=== PATIENT | male | born 1945 | race Caucasian/White ===

== ENCOUNTER 2016-03-30 10:45 | Emergency (ER) | payer BC ==
[2016-03-30 11:13] VITALS: BP 148/77
[2016-03-30] MEDS ORDERED: Albuterol/Ipratropium NEB.SOL* Albuterol 2.5 MG/Ipratropium 0.5 MG 3 ML INH ONE (11:15)
--- NOTE | 2016-03-30 11:41 | RAD ---
INDICATION: Cough, wheezes and shortness of breath. COMPARISON: Comparison is made with a prior chest x-ray study from July 21, 2014. TECHNIQUE: Dual-energy PA and lateral views of the chest were obtained. FINDINGS: The heart is within normal limits in size. Mediastinal and hilar contours appear within normal limits. The lungs are hyperinflated with flattening of the diaphragms. The lungs are clear. No pleural effusion is seen. IMPRESSION: FINDINGS SUGGESTIVE OF COPD, NO EVIDENCE FOR ACUTE FINDING.
--- NOTE | 2016-03-30 11:45 | UC ---
Respiratory Complaint HPI - HPI Summary HPI Summary: Exacerbation of Asthma non-stop from October has seen PCP several times, a course of Doxycycline, and Biaxin, steroids, and spiriva have been added pt feels he is not getting better at all - History of Current Complaint Chief Complaint: UCRespiratory Stated Complaint: ASHTMA ATTACK COMPLAINT Time Seen by Provider: 03/30/16 10:56 Hx Obtained From: Patient Onset/Duration: Gradual Onset, Lasting Weeks, Still Present, Worse Since - past 5 days Timing: Constant Severity Initially: Mild Severity Currently: Moderate Character: Cough: Productive Aggravating Factors: Nothing Alleviating Factors: Nothing Associated Signs And Symptoms: Positive: Dyspnea, Pleuritic Chest Pain, Wheezing , URI. Negative: Fever, Chills, Calf Pain, Calf Swelling - Allergies/Home Medications Allergies/Adverse Reactions: Allergies Allergy/AdvReac Type Severity Reaction Status Date / Time Penicillins Allergy Unknown Verified 03/30/16 10:55 Reaction Details Home Medications: Home Medications Albuterol HFA INHALER* [Ventolin HFA Inhaler*] 1 - 2 puff INH Q4H PRN 03/30/16 [ History Confirmed 03/30/16] DOXYcycline CAP(*) [DOXYcycline 100MG CAP(*)] 100 mg PO BID 03/30/16 [History Confirmed 03/30/16] Fluticasone-Salmeterol 500-50* [Advair Diskus 500-50*] 2 puff INH DAILY [History Confirmed 03/30/16] Lisinopril TAB* [Prinivil TAB*] 10 mg PO DAILY 03/30/16 [History Confirmed 03/30] Tamsulosin CAP* [Flomax CAP*] 0.4 mg PO DAILY 03/30/16 [History Confirmed ] Tiotropium CAP.INH* [Spiriva CAP.INH*] 1 cap.inh INH DAILY 03/30/16 [History Confirmed 03/30/16] predniSONE TAB* [Deltasone TAB*] 5 mg PO DAILY 03/30/16 [History Confirmed 03/30] PMH/Surg Hx/FS Hx/Imm Hx Previously Healthy: No Cardiovascular History Of: Reports: Hypertension Respiratory History Of: Reports: Asthma - Surgical History Surgical History: None - Family History Known Family History: Positive: Hypertension - Social History Occupation: Retired Lives: With Family Alcohol Use: Weekly Alcohol Amount: 4-5 times weekly Substance Use Type: None Smoking Status (MU): Never Smoked Tobacco - Immunization History Most Recent Influenza Vaccination: not this season Review of Systems Constitutional: Negative Skin: Negative Eyes: Negative ENT: Negative Respiratory: Cough - Wheeze Cardiovascular: Negative Gastrointestinal: Negative Genitourinary: Negative Motor: Negative Neurovascular: Negative Musculoskeletal: Negative Neurological: Negative Psychological: Negative All Other Systems Reviewed And Are Negative: Yes Physical Exam Triage Information Reviewed: Yes Appearance: Well-Appearing, No Pain Distress, Well-Nourished Vital Signs: Initial Vital Signs Temp 97.7 F 03/30/16 10:57 Pulse 74 03/30/16 10:57 Resp 20 03/30/16 10:57 BP 148/77 03/30/16 10:57 Pulse Ox 97 03/30/16 10:57 Vital Signs Reviewed: Yes Eye Exam: Normal Eyes: Positive: Conjunctiva Clear ENT Exam: Normal ENT: Positive: Normal ENT inspection, Hearing grossly normal, Pharynx normal, TMs normal. Negative: Nasal congestion, Nasal drainage, Tonsillar swelling, Tonsillar exudate, Trismus, Muffled/hoarse voice Neck exam: Normal Neck: Positive: Supple, Nontender, No Lymphadenopathy Respiratory Exam: Normal Respiratory: Positive: Chest non-tender, No respiratory distress, No accessory muscle use, Wheezing Cardiovascular Exam: Normal Cardiovascular: Positive: RRR, No Murmur, Pulses Normal, Brisk Capillary Refill Neurological Exam: Normal Neurological: Positive: Alert, Muscle Tone Normal Psychological Exam: Normal Psychological: Positive: Normal Response To Family Skin Exam: Normal UC Diagnostic Evaluation - Laboratory O2 Sat by Pulse Oximetry: 97 - Radiology Xray Interpretation: No Acute Changes Radiology Interpretation Completed By: Radiologist Re-Evaluation - Re-Evaluation First Eval Change: Improved - After Duo neb Respiratory Course/Dx - Course Course Of Treatment: Increase albuterol use to 4 times a day, follow with circuit judge or Asthma Specialist in the next week, re-check with Dr. Chahal, continue other meds as prescribed - Differential Dx/Diagnosis Differential Diagnosis/HQI/PQRI: Asthma, Exacerbation Of COPD, Influenza, Laryngitis, Lower Resp Infection Provider Diagnoses: Copd, Exacerbation of Asthma Discharge - Discharge Plan Condition: Stable Disposition: HOME Patient Education Materials: Asthma (ED), Moderate and Severe Persistent Asthma (ED), Allergies (ED) Referrals: Jimmy Anton MD [Medical Doctor] - 1 Week Sohail Chahal MD [Primary Care Provider] - Juana Izquierdo MD [Medical Doctor] - 1 Week
== END 2016-03-30 12:05 | disposition home or self-care (01) ==
LOC: UCCORT 10:45
DX: J45.901 Unspecified asthma with (acute) exacerbation (principal); J44.9 Chronic obstructive pulmonary disease, unspecified; I10 Essential (primary) hypertension; Z88.0 Allergy status to penicillin
CPT/HCPCS: 71020; 99202; A9270-GY; G0463

== ENCOUNTER 2016-08-14 15:00 | Emergency (ER) | payer BC ==
[2016-08-14 16:02] VITALS: BP 125/81
--- NOTE | 2016-08-14 16:24 | UC ---
Hand/Wrist HPI - HPI Summary HPI Summary: Patient was playing volleyball and jammed his right pinky finger. he cannot straighten the DIP joint, ecchymosis under the right pinky nail - History Of Current Complaint Chief Complaint: UCUpperExtremity Stated Complaint: RIGHT PINKY INJURY Time Seen by Provider: 08/14/16 16:17 Hx Obtained From: Patient ?: No Mechanism Of Injury: trauma to end of nail Onset/Duration: Sudden Onset Severity Initially: Mild Severity Currently: Mild Character Of Pain: Dull, Stiffness Aggravating Factor(s): Movement Alleviating: Nothing Associated Signs And Symptoms: Positive: Swelling, Bruising - Allergies/Home Medications Allergies/Adverse Reactions: Allergies Allergy/AdvReac Type Severity Reaction Status Date / Time Penicillins Allergy Unknown Verified 08/14/16 16:02 Reaction Details PMH/Surg Hx/FS Hx/Imm Hx Previously Healthy: Yes - Surgical History Surgical History: None - Family History Known Family History: Positive: Hypertension - Social History Alcohol Use: Weekly Alcohol Amount: 4-5 times weekly Substance Use Type: None Smoking Status (MU): Never Smoked Tobacco - Immunization History Most Recent Influenza Vaccination: not this season Review of Systems Constitutional: Negative Skin: Bruising Eyes: Negative ENT: Negative Respiratory: Negative Cardiovascular: Negative Gastrointestinal: Negative Genitourinary: Negative Motor: Negative Musculoskeletal: Arthralgia, Decreased ROM, Edema Neurological: Negative Psychological: Negative All Other Systems Reviewed And Are Negative: Yes Physical Exam Triage Information Reviewed: Yes Appearance: Well-Appearing, Well-Nourished, Pain Distress Vital Signs: Initial Vital Signs Temp 97.8 F 08/14/16 15:55 Pulse 67 08/14/16 15:55 Resp 16 08/14/16 15:55 BP 125/81 08/14/16 15:55 Pulse Ox 97 08/14/16 15:55 Vital Signs Reviewed: Yes Eye Exam: Normal ENT Exam: Normal Dental Exam: Normal Neck exam: Normal Respiratory Exam: Normal Cardiovascular Exam: Normal Abdominal Exam: Normal Bowel Sounds: Positive: Present Musculoskeletal: Positive: Strength Limited @ - 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 reduction of joint performed and splint applied. - Differential Dx/Diagnosis Differential Diagnosis/HQI/PQRI: Contusion, Dislocation, Fracture, Sprain, Strain, Subungual Hematoma, Tendonitis Provider Diagnoses: OBLIQUE INTRA-ARTICULAR SLIGHTLY DISPLACED FRACTURE THROUGH THE DORSAL BASE. subungal hematoma Discharge - Discharge Plan Condition: Stable Disposition: HOME Patient Education Materials: Finger Fracture (ED) Additional Instructions: 1. Soak the hand twice a day for the next few days. 2. Wear the splint daily for the next 2 weeks. 3. Follow up with Dr luque in a week or two to make sure it is healing well.
--- NOTE | 2016-08-14 16:39 | RAD ---
INDICATION: Right fifth finger injury. TECHNIQUE: 3 views of the right fifth finger were obtained. FINDINGS: There is an oblique fracture present through the dorsal base of the distal phalanx. This gives rise to a 3 x 2 mm fracture fragment which is distracted. The finger is flexed at the distal interphalangeal joint. IMPRESSION: OBLIQUE INTRA-ARTICULAR SLIGHTLY DISPLACED FRACTURE THROUGH THE DORSAL BASE OF THE DISTAL PHALANX.
== END 2016-08-14 17:06 | disposition home or self-care (01) ==
LOC: UCCORT 15:00
DX: S62.636A Displaced fracture of distal phalanx of right little finger, initial encounter for closed fracture (principal); W23.0XXA Caught, crushed, jammed, or pinched between moving objects, initial encounter; Y93.68 Activity, volleyball (beach) (court); Y92.9 Unspecified place or not applicable; Z88.0 Allergy status to penicillin
CPT/HCPCS: 73140; 99212; G0463

== ENCOUNTER 2018-06-06 15:58 | Emergency (ER) | payer BC ==
[2018-06-06 17:01] VITALS: BP 143/74
--- NOTE | 2018-06-06 17:24 | UC ---
Respiratory Complaint HPI - HPI Summary HPI Summary: Pt has asthma and has had cough, nasal congestion, and occasional wheezing x5 nights. took some advil which helped body aches. did not get flu shot this year. but feels it is not the flu. using his regular inhalers which help but feels symptoms have gone on long enough. just drove back from [place]. - History of Current Complaint Chief Complaint: UCRespiratory Stated Complaint: COUGH,CONGESTION Time Seen by Provider: 06/06/18 17:23 Pain Intensity: 0 - Allergies/Home Medications Allergies/Adverse Reactions: Allergies Allergy/AdvReac Type Severity Reaction Status Date / Time Penicillins Allergy Unknown Unknown Verified 06/06/18 16:54 Reaction Details BRAZIL NUTS,ALMONS Allergy Severe Anaphylatic Uncoded 06/06/18 16:54 Shock Home Medications: Home Medications Calcium Carb,Gluc/Mag Ox,Gluc [Calcium Magnesium Caplet] 2 tab PO DAILY [History Confirmed 06/06/18] Food Enzyme Digestive Aid 1 tab PO BID 06/06/18 [History Confirmed 06/06/18] Histablock 2 tab PO BID 06/06/18 [History Confirmed 06/06/18] Hydrangea 2 tab PO BID 06/06/18 [History Confirmed 06/06/18] Ibuprofen TAB* [Motrin TAB* 600 MG] 600 mg PO Q6H PRN 06/06/18 [History Confirmed 06/06/18] If-C Tcm Complex 1 tab PO DAILY 06/06/18 [History Confirmed 06/06/18] Joint Support 2 tab PO BID 06/06/18 [History Confirmed 06/06/18] Lbs 2 2 tab PO BID 06/06/18 [History Confirmed 06/06/18] Metabomax Plus 1 tab PO BID 06/06/18 [History Confirmed 06/06/18] Multivitamins/Minerals TAB* [Theragran/minerals TAB*] 2 tab PO BID 06/06/18 [ History Confirmed 06/06/18] Sinus Support 2 tab PO BID 06/06/18 [History Confirmed 06/06/18] Tamsulosin CAP* [Flomax CAP*] 0.4 mg PO BID 06/06/18 [History Confirmed 06/06/18 ] PMH/Surg Hx/FS Hx/Imm Hx Cardiovascular History: Hypertension Respiratory History: Asthma - Surgical History Surgical History: None - Family History Known Family History: Positive: Hypertension - Social History Alcohol Use: Weekly Alcohol Amount: 4-5 times weekly Substance Use Type: None Smoking Status (MU): Never Smoked Tobacco - Immunization History Most Recent Influenza Vaccination: not this season Review of Systems All Other Systems Reviewed And Are Negative: Yes Constitutional: Positive: Fatigue. Negative: Fever Skin: Negative: Rash Respiratory: Positive: Cough, Other - wheezing. Negative: Shortness Of Breath Cardiovascular: Positive: Negative Neurological: Negative: Headache Physical Exam Triage Information Reviewed: Yes Appearance: Well-Appearing Vital Signs: Initial Vital Signs Temp 97.8 F 06/06/18 16:55 Pulse 57 06/06/18 16:55 Resp 16 06/06/18 16:55 BP 143/74 06/06/18 16:55 Pulse Ox 97 06/06/18 16:55 Vital Signs Reviewed: Yes ENT: Positive: Pharynx normal, TMs normal, Uvula midline. Negative: Sinus tenderness Neck: Positive: Supple, Nontender, No Lymphadenopathy. Negative: Nuchal Rigidity Respiratory Exam: Normal Cardiovascular Exam: Normal Respiratory Course/Dx - Course Course Of Treatment: Cough, nasal congestion, occasional wheezing x5 days in an asthmatic. Although no wheezing on today's exam, will give short burst of steroid on top of his regular inhalers. exam was unremarkble and vitals were good. advised to see his main pcp if not improving. cont. his rx'd inhalers. - Differential Dx/Diagnosis Differential Diagnosis/HQI/PQRI: Asthma, Bronchitis Provider Diagnosis: Asthma exacerbation Discharge - Sign-Out/Discharge Documenting (check all that apply): Patient Departure All imaging exams completed and their final reports reviewed: No Studies - Discharge Plan Condition: Good Disposition: HOME Prescriptions: predniSONE [Prednisone 20 MG TAB] 20 mg PO DAILY 3 Days #3 tablet Patient Education Materials: Bronchospasm (ED) Referrals: Sohail Chahal MD [Primary Care Provider] - Additional Instructions: if no improvement after steroid burst please follow up with your primary care. - Billing Disposition and Condition Condition: GOOD Disposition: Home
== END 2018-06-06 17:40 | disposition home or self-care (01) ==
LOC: UCCORT 15:58
DX: J45.901 Unspecified asthma with (acute) exacerbation (principal); I10 Essential (primary) hypertension; Z88.0 Allergy status to penicillin; Z91.018 Allergy to other foods; Z79.899 Other long term (current) drug therapy
CPT/HCPCS: 99212; G0463